=== PATIENT | female | born 1970 | race Caucasian/White ===

== ENCOUNTER 2016-08-28 10:40 | Emergency (ER) | payer MEDICARE | END 2016-08-28 11:05 | disposition home or self-care (01) | LOC: ER 10:40 | DX: G89.29 Other chronic pain (principal); M25.531 Pain in right wrist; F41.9 Anxiety disorder, unspecified; F32.9 Major depressive disorder, single episode, unspecified; F17.210 Nicotine dependence, cigarettes, uncomplicated; Z90.49 Acquired absence of other specified parts of digestive tract; Z98.890 Other specified postprocedural states; Z79.899 Other long term (current) drug therapy ==

== ENCOUNTER 2016-09-14 14:25 | Emergency (ER) | payer MEDICARE | END 2016-09-14 14:58 | disposition home or self-care (01) | LOC: ER 14:25 | DX: S63.521A Sprain of radiocarpal joint of right wrist, initial encounter (principal); F17.210 Nicotine dependence, cigarettes, uncomplicated; F41.9 Anxiety disorder, unspecified; F32.9 Major depressive disorder, single episode, unspecified; Z79.899 Other long term (current) drug therapy; W23.0XXA Caught, crushed, jammed, or pinched between moving objects, initial encounter; Y92.009 Unspecified place in unspecified non-institutional (private) residence as the place of occurrence of the external cause ==

== ENCOUNTER 2016-09-20 11:15 | Emergency (ER) | payer MEDICARE | END 2016-09-20 12:16 | disposition home or self-care (01) | LOC: ER 11:15 | DX: M79.641 Pain in right hand (principal); G89.29 Other chronic pain; Z79.899 Other long term (current) drug therapy; W19.XXXD Unspecified fall, subsequent encounter; Y92.009 Unspecified place in unspecified non-institutional (private) residence as the place of occurrence of the external cause ==